=== PATIENT | male | born 1990 | race Caucasian/White ===

== ENCOUNTER 2024-03-01 20:37 | Emergency (ER) | payer MEDICAID ==
[~2024-03-01] VITALS: Ht 172.7 cm; Wt 81.6 kg
[2024-03-01 21:07] VITALS: BP_SYST 104; PULSE 60; RESP 18; TEMP 98.2; O2SAT 97
[2024-03-01] MEDS: KETOROLAC TROMETHAMINE 60 MG/2 ML VIAL IM ONE (21:27)
[2024-03-01] MEDS ORDERED: KETOROLAC TROMETHAMINE 30 MG VIAL IVP ONE (22:45)
[2024-03-01] MEDS ORDERED: NACL 0.9% 1,000 ML IV ONE (22:45)
[2024-03-01 22:55] VITALS: BP_SYST 142; PULSE 79; RESP 19; TEMP 98.6; O2SAT 99
[2024-03-02] MEDS ORDERED: KETOROLAC TROMETHAMINE 30 MG VIAL ONE (05:11)
[2024-03-02] MEDS ORDERED: PIPERACILLIN/TAZOBACTAM 3.375 GM/VIAL (ZOSYN) IV ONE (05:12)
[2024-03-02] MEDS ORDERED: IBUP-1971 PO (21:54)
[2024-03-02] MEDS ORDERED: HYDR-3917 PO (21:54)
== END 2024-03-01 22:55 | disposition left against medical advice (07) ==
LOC: SED 20:37
DX: L03.116 Cellulitis of left lower limb (principal); Z88.0 Allergy status to penicillin
CPT/HCPCS: 99283; 73560; 96372; J1885; J2543

== ENCOUNTER → 2024-03-02 04:05 | Emergency (ER) | payer MEDICAID ==
[~2024-03-02 04:05] MED LIST: HYDR-3917 PO; IBUP-1971 PO
[2024-03-02 08:46] LABS: BASOPHILS % (AUTO) 0.5 % (0.0-2.0); EOSINOPHILS # (AUTO) 0.1 K/uL (0.0-0.4); EOSINOPHILS % (AUTO) 1.4 % (0.0-4.0); HEMATOCRIT 43.1 % (36-54); HEMOGLOBIN 14.9 g/dL (14.0-18.0); LYMPHOCYTES # (AUTO) 1.4 K/uL (1.0-5.5); LYMPHOCYTES % (AUTO) 19.6 % (20.5-51.5); MEAN CORPUSCULAR HEMOGLOBIN 34 pg (27-31); MEAN CORPUSCULAR HGB CONC 35 % (32-36); MEAN CORPUSCULAR VOLUME 99 fL (79.0-98.0); MONOCYTES # (AUTO) 0.7 K/uL (0.0-1.0); MONOCYTES % (AUTO) 9.6 % (1.7-9.3); NEUTROPHILS # (AUTO) 5.1 K/uL (1.8-7.7); NEUTROPHILS % (AUTO) 68.9 % (40.0-70.0); PLATELET COUNT (AUTO) 294 K/uL (130-430); RED BLOOD CELL COUNT(AUTO) 4.37 MIL/uL (4.2-6.2); RED CELL DISTRIBUTION WIDTH 14.1 % (9.0-15.0); WHITE BLOOD COUNT (AUTO) 7.4 K/uL (4.8-10.8)
[2024-03-02 08:47] LABS: POTASSIUM 3.8 mmol/L (3.5-5.1)
[2024-03-02 08:48] LABS: BILIRUBIN,DIRECT 0.2 mg/dL (0.0-0.3); CALCIUM 7.1 mg/dL (8.4-11.0); CREATININE 0.82 mg/dL (0.55-1.30); TOTAL BILIRUBIN 0.5 mg/dL (0.0-1.0)
[2024-03-02 08:49] LABS: ALBUMIN 3.8 g/dL (3.4-4.8); TOTAL PROTEIN, SERUM 7.9 g/dL (6.4-8.3)
== END | disposition home or self-care (01) ==
LOC: SED 04:05
DX: S60.42 Blister (nonthermal) of fingers (principal); F15.90 Other stimulant use, unspecified, uncomplicated; F17.201 Nicotine dependence, unspecified, in remission; Z88.0 Allergy status to penicillin; X58.XXXD Exposure to other specified factors, subsequent encounter
CPT/HCPCS: 36415; 80048; 80076; 83605; 85025; 87040; 99283

== ENCOUNTER 2024-03-02 19:53 | Emergency (ER) | payer MEDICAID ==
[~2024-03-02] VITALS: Ht 172.7 cm; Wt 81.6 kg
[2024-03-02 20:17] VITALS: BP_SYST 125; PULSE 90; RESP 18; TEMP 98.9; O2SAT 97
[2024-03-02] MEDS ORDERED: HYDR-3917 PO (21:54)
[2024-03-02] MEDS ORDERED: IBUP-1971 PO (21:54)
[2024-03-02] MEDS: MORPHINE 4 MG INJ. 4 MG/ML VIAL IM ONE (22:03)
[2024-03-02 22:13] VITALS: BP_SYST 127; PULSE 85; RESP 18; TEMP 98.5; O2SAT 97
== END 2024-03-02 22:13 | disposition home or self-care (01) ==
LOC: SED 19:53
DX: M25.462 Effusion, left knee (principal); Z88.0 Allergy status to penicillin; Z79.899 Other long term (current) drug therapy
CPT/HCPCS: 99284; 96372; J2270